=== PATIENT | male | born 1960 ===

== ENCOUNTER 2018-04-12 11:08 | Emergency (ER) | payer MEDICAID ==
[~2018-04-12] VITALS: Ht 167.6 cm; Wt 101.0 kg
[2018-04-12 11:15] VITALS: BP 134/84
[2018-04-12] MEDS ORDERED: VILA20TA PO (11:33)
[2018-04-12] MEDS ORDERED: ALPR2TAB2 PO (11:34)
== END 2018-04-12 11:37 | disposition home or self-care (01) ==
LOC: ED 11:30
DX: F41.9 Anxiety disorder, unspecified (principal); F32.9 Major depressive disorder, single episode, unspecified; Z76.0 Encounter for issue of repeat prescription
CPT/HCPCS: 99281